=== PATIENT | male | born 1970 | race Caucasian/White ===

== ENCOUNTER 2016-10-31 11:01 | Emergency (ER) | payer OTHER, BC ==
[2016-10-31] MEDS ORDERED: Furosemide 40 MG/4 ML VIAL ONE (13:01)
== END 2016-10-31 14:48 | disposition home or self-care (01) ==
LOC: ER 11:01
DX: I50.9 Heart failure, unspecified (principal); R60.0 Localized edema; Z79.899 Other long term (current) drug therapy; Z79.84 Long term (current) use of oral hypoglycemic drugs; E11.9 Type 2 diabetes mellitus without complications; I10 Essential (primary) hypertension; E78.00 Pure hypercholesterolemia, unspecified
CPT/HCPCS: 36415; 71010; 80053; 82553; 83880; 84484; 85025; 85610; 93005; 96374